=== PATIENT | female | born 1980 | race Caucasian/White ===

== ENCOUNTER 2019-07-15 13:01 | Emergency (ER) | payer OTHER, BC, SELFPAY ==
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
[2019-07-15 13:11] VITALS: BP 138/88; PULSE 80; RESP 16; TEMP 36.4; O2SAT 100
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
[2019-07-15 14:31] VITALS: BP 142/79; PULSE 82; RESP 16; TEMP 36.7; O2SAT 100
== END 2019-07-15 14:36 | disposition home or self-care (01) ==
LOC: ANHED 13:19
PROVIDERS: Emergency Provider Emergency Medicine; PCP Internal Medicine
DX: S06.0X0A Concussion without loss of consciousness, initial encounter (principal); S13.4XXA Sprain of ligaments of cervical spine, initial encounter; F41.9 Anxiety disorder, unspecified; F32.9 Major depressive disorder, single episode, unspecified; V43.52XA Car driver injured in collision with other type car in traffic accident, initial encounter
CPT/HCPCS: 70450; 72050; 73010; 99284

== ENCOUNTER 2020-04-13 17:42 | Outpatient (CLI) | payer OTHER, BC, SELFPAY ==
[2020-04-13 18:02] LABS: Basophils Absolute Auto 0.1 K/mm3 (0.0-0.1); Basophils Percent Auto 0.6 % (0.2-1.2); Eosinophils Absolute Auto 0.1 K/mm3 (0-0.3); Eosinophils Percent Auto 1.5 % (0-4.4); Hematocrit 40.3 % (37.0-47.0); Hemoglobin 12.9 g/dL (12.0-15.0); Immature Granulocyte Absolute 0.02 K/mm3 (0.00-0.031); Immature Granulocyte Percent A 0.3 % (0-0.5); Lymphocytes Percent Auto 27.8 % (18.3-44.2); Mean Corpuscular Hemoglobin 30.2 pg (26-34); Mean Corpuscular Volume 94.4 fl (80-100); Mean Platelet Volume 10.3 fl (7.4-10.4); Monocytes Absolute Auto 0.5 K/mm3 (0.1-0.6); Monocytes Percent Auto 6.2 % (2.6-8.5); Neutrophils Percent Auto 63.6 % (45.5-73.1); Platelet Count Result 183 k/mm3 (150-375); Red Blood Count 4.27 M/mm3 (4.2-5.4); Red Cell Distribution Width 13.2 % (11.5-14.5); White Blood Count 7.9 K/mm3 (4.5-10.0)
[2020-04-13 18:14] LABS: Alanine Aminotransferase 27 U/L (4-35); Albumin Level 4.3 g/dL (3.5-5.1); Alkaline Phosphatase 62 U/L (38-126); Anion Gap 5 mmol/L (8-16); Aspartate Amino Transferase 24 U/L (14-36); Bilirubin,Total 0.2 mg/dL (0.2-1.3); Blood Urea Nitrogen 9 mg/dL (7-17); Calcium 9.2 mg/dL (8.4-10.2); Carbon Dioxide 30 mmol/L (22-30); Chloride 105 mmol/L (98-107); Cholesterol 199 mg/dL (0-200); Estimated Glomerular Filt Rate > 60; Glucose 75 mg/dL (65-105); HDL Direct 46 mg/dL; Potassium 4.8 mmol/L (3.4-5.0); Sodium 140 mmol/L (137-145); Triglycerides 281 mg/dL (<150)
[2020-04-13 18:25] LABS: LDL Cholesterol Direct 121 mg/dL
== END 2020-04-13 17:43 | disposition home or self-care (01) ==
LOC: ANHLAB 17:44
PROVIDERS: PCP Internal Medicine; Visit Provider Nurse Practitioner
DX: G93.2 Benign intracranial hypertension (principal); Z13.220 Encounter for screening for lipoid disorders
CPT/HCPCS: 36415; 80053; 80061; 85025

== ENCOUNTER 2022-02-01 14:59 | Outpatient (CLI) | payer BC, SELFPAY ==
--- NOTE | ~2022-02-01 | MM_ITS ---
EXAMINATION: MM screening sally BI w dianelys HISTORY: Screening mammogram TECHNIQUE: Craniocaudal and mediolateral oblique 3-D tomosynthesis images were obtained and synthetic 2-D images were generated. CAD analysis was submitted and interpreted. COMPARISON: None, baseline BREAST PARENCHYMAL COMPOSITION: There are scattered areas of fibroglandular density. FINDINGS: There is no suspicious mass, calcification, or architectural distortion to suggest malignan cy in either breast. IMPRESSION: 1. No mammographic evidence of malignancy. 2. Recommend routine screening mammography in one year. BI-RADS Category 1: Negative Reviewed, dictated and finalized at location A.
== END 2022-02-01 15:00 | disposition home or self-care (01) ==
PROVIDERS: PCP Internal Medicine; Visit Provider Nurse Practitioner
DX: Z12.31 Encounter for screening mammogram for malignant neoplasm of breast (principal)
CPT/HCPCS: 77063; 77067

== ENCOUNTER 2022-03-23 15:32 | Observation (INO) | payer BC, SELFPAY ==
--- NOTE | ~2022-03-23 | CT_ITS ---
EXAMINATION: CT abdomen pelvis w con DATE: 03/23/2022 19:51 INDICATION: LLQ ABD pain TECHNIQUE: Computed tomography (CT) of the abdomen and pelvis was performed with 100 mL Omnipaque-350 intravenous contrast. Automated exposure control and iterative reconstruction technique were employe d. The dose-length product was 1360.96 mGy-cm. COMPARISON: None. FINDINGS: Lower thorax: Unremarkable Liver: Normal. Biliary/Gallbladder: Gallbladder is normal. No bile duct dilation. Pancreas: No mass or duct dilation. Spleen: Normal. Adrenals:No mass. Kidneys: No mass, stone, or hydronephrosis. GI tract: No small or large bowel dilation. Dilated, hyperemic appendix, intact wall, with mild surro unding inflammatory change. Mesentery/Peritoneum: No ascites, mass, or free air. Retroperitoneum: No mass. Pelvis: Pelvic organs are within normal limits. Soft Tissues: Soft tissues and body wall unremarkable. Bones: No acute osseous finding. IMPRESSION: Acute uncomplicated appendicitis. Reviewed, dictated and finalized at location K.
[2022-03-23 15:41] VITALS: BP 145/89; PULSE 73; RESP 16; TEMP 36.6; O2SAT 100
[2022-03-23 15:54] LABS: Basophils Absolute Auto 0.1 K/mm3 (0.0-0.1); Basophils Percent Auto 0.4 % (0.2-1.2); Eosinophils Percent Auto 0.2 % (0-4.4); Hematocrit 44.7 % (37.0-47.0); Hemoglobin 14.4 g/dL (12.0-15.0); Immature Granulocyte Absolute 0.05 K/mm3 (0.00-0.031); Immature Granulocyte Percent A 0.4 % (0-0.5); Lymphocytes Absolute Auto 1.39 K/mm3 (0.9-3.2); Lymphocytes Percent Auto 11.3 % (18.3-44.2); Mean Corpuscular HGB Conc 32.2 g/dl (32-36); Mean Corpuscular Hemoglobin 30.4 pg (26-34); Mean Corpuscular Volume 94.5 fl (80-100); Mean Platelet Volume 10.4 fl (7.4-10.4); Monocytes Absolute Auto 0.5 K/mm3 (0.1-0.6); Neutrophils Absolute Auto 10.3 K/mm3 (1.3-6.7); Neutrophils Percent Auto 83.7 % (45.5-73.1); Platelet Count Result 224 k/mm3 (150-375); Red Blood Count 4.73 M/mm3 (4.2-5.4); Red Cell Distribution Width 13.3 % (11.5-14.5); White Blood Count 12.3 K/mm3 (4.5-10.0)
[2022-03-23 16:10] LABS: Alanine Aminotransferase 36 U/L (6-35); Albumin Level 4.7 g/dL (3.5-5.1); Alkaline Phosphatase 96 U/L (38-126); Anion Gap 13 mmol/L (8-16); Aspartate Amino Transferase 26 U/L (14-36); Bilirubin,Total 0.8 mg/dL (0.2-1.3); Blood Urea Nitrogen 8 mg/dL (7-17); Calcium 9.2 mg/dL (8.4-10.2); Carbon Dioxide 26 mmol/L (22-30); Chloride 99 mmol/L (98-107); Estimated CRCL calculation 100 ml/min; Estimated Glomerular Filt Rate > 60; Glucose 114 mg/dL (65-110); Lipase 34 U/L (23-300); Sodium 138 mmol/L (137-145)
[2022-03-23 16:19] LABS: Add Urine Microscopic? YES; Appearance Urine Clear (Clear); Bacteria Urine Trace /hpf; Bilirubin Urine Negative (Negative); Blood Urine 1+ (Negative); Color Urine Straw (Yellow); Glucose Urine UA Negative (Negative); Ketones Urine Negative (Negative); Leukocyte Esterase Ur Negative LEU/UL (Negative); Mucus Urine Rare /lpf; Nitrate Urine Negative (Negative); Protein Urine Negative (Negative); RBC Urine 0-2 /hpf (0-2); Squamous Epithelial Cell Urine Occasional /hpf (Few); Urobilinogen Urine Negative mg/dL (<2.0); WBC Urine 0-3 /hpf
[2022-03-23 16:25] LABS: Specific Grav Ur 1.002 (1.001-1.035)
[2022-03-23 18:28] VITALS: BP 151/91; PULSE 82; RESP 18; O2SAT 100
--- NOTE | 2022-03-23 19:03 | ED.ABDPAIN ---
HPI - Abdominal Pain General Chief Complaint: Abdominal Pain Stated Complaint: abd pain Time Seen by Provider: 03/23/22 18:56 Source: patient Mode of arrival: ambulatory Limitations: no limitations History of Present Illness HPI narrative: Patient presents complaints of left lower quadrant abdominal pain that started this morning. States pain is stabbing in nature and persistent. Denies nausea, vomiting, diarrhea or fever. States did have episode of nausea when pain increased but that has resolved since. Denies other problems or complaints at this time. Last menstrual period 1 week ago. Related Data Home Medications Medication Instructions Recorded Confirmed bupropion HCl 150 mg 24 hr tablet, 150 mg PO QAM 11/24/21 03/23/22 extended release venlafaxine 150 mg tablet,extended 150 mg PO DAILY 11/24/21 03/23/22 release 24 hr Allergies Allergy/AdvReac Type Severity Reaction Status Date / Time pineapple Allergy Mild Hives/RED Unverified 03/24/22 16:51 FACE Review of Systems Review of Systems: CONSTITUTIONAL: Denies fever, chills, or sweats. EYES: Denies visual changes, redness, or discharge. ENT: Denies rhinorrhea, congestion, sore throat, or otalgia. CARDIOVASCULAR: Denies chest pain, palpitations, or edema. RESPIRATORY: Denies cough or dyspnea. GASTROINTESTINAL: Left lower quadrant abdominal pain. denies nausea, vomiting, or diarrhea. GENITOURINARY: Denies dysuria or hematuria. SKIN: Denies rash or itching. MUSCULOSKELETAL: Denies back pain, joint pain, or myalgia. NEUROLOGIC: Denies headache, numbness, or weakness. PSYCHIATRIC: Denies anxiety or depression. [facility] Past Medical History Medical History Anxiety Benign intracranial hypertension Depression Ocular migraine Family History Family History Daughter Type 1 diabetes Father Hypertension Diabetes mellitus Social History Social History Smoking status: Never smoker Alcohol intake: current Drinks per week: 5 Alcohol use details: once a week Substance use: never Substance use type: does not use Other substance usage details: Pt states using Marijuana occasionally. Last use: 3 weeks ago Has the Lack of Transportation Kept You From Medical Appointments or From Getting Medications?: No Within the Past 12 Months, Were You Worried Whether Your Food Would Run Out Before You Got Money to Buy More?: Never True What is Your Housing Situation Today?: I Have Housing Are You Worried That in the Next 2 Months, You May Not Have Your Own Housing to Live In?: No Do You Have Trouble Paying Your Heating Or Electricity Bill?: No Do You Have Trouble Paying For Medicines?: No Are You Currently Unemployed and Looking for Work?: No Highest Level of Education Completed: Bachelor's Degree Do You Have Trouble With Childcare or the Care of a Family Member?: No Gender identity (if verbalized by the patient): Female Spiritual care concerns: No Exam Narrative: GENERAL: Well-appearing, well-nourished, and in no acute distress. HEAD: Normocephalic, atraumatic. EYES: PERRLA and EOMI. ENT: Nares clear, no rhinorrhea or epistaxis. Mucous membranes moist. NECK: Supple. CHEST: Clear to auscultation. No respiratory distress. HEART: Regular rate and rhythm. No murmur heard. Normal peripheral pulses. ABDOMEN: Soft, tender palpation left lower quadrant and right lower quadrant. Hypoactive bowel sounds. No CVA tenderness. EXTREMITIES: Normal range of motion. No edema. SKIN: Warm, dry, no rash. NEURO: No focal deficits. Alert and oriented x3. PSYCH: Normal mood and affect. Course Vital Signs Vital signs: Vital Signs Temperature 36.6 C 03/23/22 15:41 Pulse Rate 73 03/23/22 15:41 Respiratory Rate 16 03/23/22 15:41 Blood Pressure 145/89 H 03/23/22 15:41 Pu
[2022-03-23] MEDS: ACETAMINOPHEN 325 MG TABLET 650 MG PO (21:10)
[2022-03-23] MEDS: SODIUM CHLORIDE 0.9% IV 1,000 ML 125 ML IV CONT (21:30)
[2022-03-23 21:32] VITALS: BP 145/86; PULSE 80; RESP 16; O2SAT 100
[2022-03-23 21:43] VITALS: BMI 34.7
[2022-03-23 21:44] LABS: SARS-CoV-2 RNA PCR Negative
--- NOTE | 2022-03-23 21:48 | ADMGEN ---
This patient, Kaia Adams, was admitted to Medical Room 240-01. Patient/family oriented to hospital policies and general routines including ID bracelet, bed and alarms, visiting hours, pain management, procedures, bathroom and other care routines, personal items, smoking policy, room service/diet, and visiting hours. Information on how to activate the Rapid Response Team has been discussed. Patient/Family are encouraged to report perceived risks to care and to ask questions if they do not understand what they are told or what they should do.
[2022-03-23 21:52] VITALS: BP 141/79; PULSE 70; RESP 20; TEMP 37.1; O2SAT 100
[2022-03-23 21:53] VITALS: BMI 34.8
[2022-03-24] VITALS (12 sets, daily range): BP systolic 104–132; BP diastolic 58–78; PULSE 78–95; RESP 12–22; TEMP 36.1–36.6; O2SAT 95–100
[2022-03-24] MEDS: ACETAMINOPHEN 325 MG TABLET 650 MG PO ×2 (01:53→08:48)
--- NOTE | 2022-03-24 08:11 | PM.IMHP ---
H&P: HPI History of Present Illness Date/Time: 03/24/22 08:11 Chief Complaint: abdominal pain Narrative: patient is a 42-year-old woman who about 3:00 a.m. yesterday morning awakened with periumbilical and somewhat left lower quadrant abdominal pain. She had some nausea but no vomiting. She came to the emergency room where she was noted to have an elevated white blood cell count. Her pain has moved to the right lower quadrant. She has been taking some Tylenol which takes the edge off the pain. She had a CT scan in the emergency room which showed acute appendicitis. She is seen now regarding her abdominal pain and appendicitis by CT scan. Review of Systems Review of Systems: All systems reviewed & are unremarkable except as noted in HPI and below ( HPI and those items noted below) Constitutional: Constitutional: Denies chills and Denies fever(s) Cardiovascular: Cardiovascular: Denies chest pain, Denies diaphoresis, Denies dyspnea and Denies paroxysmal nocturnal dyspnea Respiratory: Respiratory: Denies chest congestion, Denies cough and Denies dyspnea Integumentary/Breasts: Skin/Breast: Denies lesions and Denies rash PMFSH Past Medical History Medical History Anxiety Benign intracranial hypertension Depression Ocular migraine Family History Family History Daughter Type 1 diabetes Father Hypertension Diabetes mellitus Social History Social History Smoking status: Never smoker Alcohol intake: current Drinks per week: 5 Alcohol use details: once a week Substance use: never Substance use type: does not use Other substance usage details: Pt states using Marijuana occasionally. Last use: 3 weeks ago Gender identity (if verbalized by the patient): Female Spiritual care concerns: No Has the Lack of Transportation Kept You From Medical Appointments or From Getting Medications?: No Within the Past 12 Months, Were You Worried Whether Your Food Would Run Out Before You Got Money to Buy More?: Never True What is Your Housing Situation Today?: I Have Housing Are You Worried That in the Next 2 Months, You May Not Have Your Own Housing to Live In?: No Do You Have Trouble Paying Your Heating Or Electricity Bill?: No Do You Have Trouble Paying For Medicines?: No Are You Currently Unemployed and Looking for Work?: No Highest Level of Education Completed: Bachelor's Degree Do You Have Trouble With Childcare or the Care of a Family Member?: No Meds Home Medications and Allergies Home Medications Medication Instructions Recorded Confirmed Type bupropion HCl 150 mg 24 hr tablet, 150 mg PO QAM 11/24/21 03/23/22 History extended release venlafaxine 150 mg tablet,extended 150 mg PO DAILY 11/24/21 03/23/22 History release 24 hr Allergies Allergy/AdvReac Type Severity Reaction Status Date / Time food allergy-pineapple Allergy Mild Hives / Uncoded 03/23/22 18:30 Red Face Vital Signs Vital Signs - 24 hr 03/23/22 15:41 03/23/22 18:28 03/23/22 21:32 Temperature 36.6 C Pulse Rate 73 82 80 Respiratory Rate 16 18 16 Blood Pressure 145/89 H 151/91 H 145/86 H Pulse Oximetry 100 100 100 Oxygen Delivery Room Air Room Air 03/23/22 21:52 03/24/22 05:49 Temperature 37.1 C 36.5 C Pulse Rate 70 78 Respiratory Rate 20 20 Blood Pressure 141/79 H 104/58 L Pulse Oximetry 100 100 Oxygen Delivery Exam Const: General: comfortable, no acute distress, alert and awake HENMT: Head: normocephalic and atraumatic Mouth: Yes Normal oral and palatal mucosa present Eyes: Conjunctivae: conjunctivae normal Pupils: Equal, round and reactive pupils present EOM: EOMs intact bilaterally Neck: Neck: normal visual inspection, no lymphadenopathy and nontender Resp: Effort & Inspection: normal respiratory
--- NOTE | 2022-03-24 08:16 | WPDHPUPDATE1 ---
History and Physical Update Update Date/Time: 03/24/22 08:16 History and Physical has been reviewed, including an updated exam of the patient. There are NO changes in the patient's condition. Risks, benefits, and alternatives have been discussed and questions answered. Patient agrees to proceed with procedure.
[2022-03-24] MEDS: buPROPion HCL XL (24 HR) 150 MG TABCR PO (08:46)
[2022-03-24] MEDS: VENLAFAXINE HCL XR 75 MG CAP.ER.24H 150 MG PO (08:46)
--- NOTE | 2022-03-24 13:34 | PC.NURSE ---
On 03/24/22, the student, [Ivis Brambila], provided care and completed [facility] documentation on this patient. I have reviewed the student's documentation and agree with the findings.
[2022-03-24] MEDS: LACTATED RINGERS 1,000 ML 30 ML IV CONT (14:00)
--- NOTE | 2022-03-24 14:14 | WPDANESEPPF ---
Anes - Initial Pre Proc Eval Procedure: Operation Date: 03/24/22 15:00 Proposed Procedures p Laparoscopic Appendectomy - Ravi Cox MD Date/Time: 03/24/22 14:14 Surgeon: Ravi Cox MD Pre Op Diagnosis: Acute Appendicitis Patient Data Age: 42 Gender: F Height: 1.8 m Weight: 113.3 kg Last Vital Signs Temp 36.6 C 03/24/22 14:07 Pulse 80 03/24/22 14:07 Resp 18 03/24/22 14:07 BP 115/68 03/24/22 14:07 Pulse Ox 99 03/24/22 14:07 O2 Del Method Room Air 03/24/22 14:07 Allergies Allergy/AdvReac Type Severity Reaction Status Date / Time food allergy-pineapple Allergy Mild Hives / Uncoded 03/23/22 18:30 Red Face Home Medications Medication Instructions Recorded Confirmed Type bupropion HCl 150 mg 24 hr tablet, 150 mg PO QAM 11/24/21 03/23/22 History extended release venlafaxine 150 mg tablet,extended 150 mg PO DAILY 11/24/21 03/23/22 History release 24 hr Laboratory Tests 03/23/22 03/23/22 03/23/22 15:47 15:47 15:47 WBC 12.3 K/mm3 H K/mm3 (4.5-10.0) RBC 4.73 M/mm3 M/mm3 (4.2-5.4) Hgb 14.4 g/dL g/dL (12.0-15.0) Hct 44.7 % % (37.0-47.0) MCV 94.5 fl fl (80-100) MCH 30.4 pg pg (26-34) MCHC 32.2 g/dl g/dl (32-36) RDW 13.3 % % (11.5-14.5) Plt Count 224 k/mm3 k/mm3 (150-375) MPV 10.4 fl fl (7.4-10.4) Immature Gran % (Auto) 0.4 % % (0-0.5) Neut % (Auto) 83.7 % H % (45.5-73.1) Lymph % (Auto) 11.3 % L % (18.3-44.2) Saunders % (Auto) 4.0 % % (2.6-8.5) Eos % (Auto) 0.2 % % (0-4.4) Baso % (Auto) 0.4 % % (0.2-1.2) Lymph # (Auto) 1.39 K/mm3 K/mm3 (0.9-3.2) Saunders # (Auto) 0.5 K/mm3 K/mm3 (0.1-0.6) Eos # (Auto) 0.0 K/mm3 K/mm3 (0-0.3) Baso # (Auto) 0.1 K/mm3 K/mm3 (0.0-0.1) Abs Immat Gran (auto) 0.05 K/mm3 H K/mm3 (0.00-0.031) Absolute Neuts (auto) 10.3 K/mm3 H K/mm3 (1.3-6.7) Absolute Nucleated RBC 0.0 K/mm3 K/mm3 (0.0-0.012) Nucleated RBC % 0.0 % % (0.0-0.2) Sodium 138 mmol/L mmol/L (137-145) Potassium 4.0 mmol/L mmol/L (3.4-5.0) Chloride 99 mmol/L mmol/L (98-107) Carbon Dioxide 26 mmol/L mmol/L (22-30) Anion Gap 13 mmol/L mmol/L (8-16) BUN 8 mg/dL mg/dL (7-17) Creatinine 0.90 mg/dL mg/dL (0.7-1.0) Estim Creat Clear Calc 100 ml/min ml/min Estimated GFR > 60 (59 - ) Glucose 114 mg/dL H mg/dL (65-110) Calcium 9.2 mg/dL mg/dL (8.4-10.2) Total Bilirubin 0.8 mg/dL mg/dL (0.2-1.3) AST 26 U/L U/L (14-36) ALT 36 U/L H U/L (6-35) Alkaline Phosphatase 96 U/L U/L (38-126) Total Protein 8.0 g/dL g/dL (6.3-8.2) Albumin 4.7 g/dL g/dL (3.5-5.1) Lipase 34 U/L U/L (23-300) Urine Color Straw (Yellow) Urine Appearance Clear (Clear) Urine pH 7.0 (5.0-9.0) Ur Specific [place] 1.002 (1.001-1.035) Urine Protein Negative mg/dL mg/dL (Negative) Urine Glucose (UA) Negative mg/dL mg/dL (Negative) Urine Ketones Negative mg/dL mg/dL (Negative) Ur Blood (Man) 1+ H (Negative) Urine Nitrate Negative (Negative) Urine Bilirubin Negative (Negative) Urine Urobilinogen Negative mg/dL mg/dL (<2.0) Leukocyte Esterase Rfl Negative AD/UL AD/UL (Negative) Urine RBC 0-2 /hpf /hpf (0-2) Urine WBC 0-3 /hpf /hpf Ur Squamous Epith Cells Occasional /hpf /hpf (Few) Urine Bacteria Trace /hpf /hpf Urine Mucus Rare /lpf /lpf SARS-CoV-2 RNA (RT-PCR) Blood Type Antibody Screen 03/23/22 10
--- NOTE | 2022-03-24 15:09 | SUR.PREOP ---
DR HENRY AND DR WEBSTER AWARE THAT PATIENT IS UNABLE TO REMOVE [place] RINGS
[2022-03-24] MEDS: BUPIVACAINE/EPINEPHRINE 0.25% 50 ML VIAL 30 ML INFILTRATE (16:46)
--- NOTE | 2022-03-24 17:28 | P.OP_ITS ---
Procedure Note - Detailed Date of Procedure 03/24/22 Pre-op Diagnosis Acute Appendicitis Post-op Diagnosis Same Procedure Performed Laparoscopic appendectomy Surgeon Ravi Cox MD Gas Systems Worker Svaana STEWART Anesthesia General and Local ( 1/4% Marcaine with epinephrine) Indications patient is a 42-year-old woman who developed mid abdominal pain that moved to the right lower quadrant. Pain was severe and she came to the emergency room. She had an elevated white count and lower abdominal tenderness worse in the right lower quadrant. CT scan showed acute appendicitis. Findings Acute non perforated appendicitis Description of Procedure patient was taken to surgery and induced into general anesthesia. The abdomen is prepped and draped. Trocars were placed in the usual fashion using applied Medical optical trocars and local anesthetic. A 5 mm a Fred is used. Patient was placed in Trendelenburg with the right-side elevated. We reviewed the cecum and found the appendix by following the tenia to the into the cecum. The appendix was twisted under the cecum and under the distal ileum. We gently broke up some inflammatory adhesions and then freed the appendix. Appendix was quite swollen and his mesentery was swollen as well. After dissecting out the appendix completely, dissection was then carried out in the appendiceal mesentery at the level of the base of the appendix. Appendiceal artery was thoroughly cauterized and divided. We continued cauterizing vessels and freeing up the mesentery until we had skeletonized the base of the appendix. A Vicryl e ndoloop was then used to ligate the appendix at its base. The appendix was amputated just above the ligature. The mucosa of the appendiceal stump was cauterized. The appendix was placed immediately in an Endo-Catch bag and retrieved through the 10 11 left lower quadrant trocar site. The left lower quadrant trocar was then replaced. We suctioned and irrigated the area of dissection in the right lower quadrant. There was no evidence of bleeding or other problems. The appendiceal stump looked good. We then evacuated CO2 and removed the trocar sleeves. Skin wounds were closed with subcuticular 4-0 Monocryl skin suture. The wounds were dressed with Exofin surgical adhesive. Patient was awakened and taken to recovery in good condition. Sponge needle counts were correct x2. Estimated Blood Loss -5.0 Urine Output 0 Pathology Yes ( Appendix) Complications No immediate complications Condition Stable Disposition PACU [facility] Billing Surgery - Charge Forward: Surgery Billing ( laparoscopic appendectomy)
--- NOTE | 2022-03-24 17:33 | PM.DS ---
DS: Admitting Diagnosis Discharge Date 03/24/2022 Admitting Diagnosis acute appendicitis depression anxiety DS: Discharge Diagnosis Discharge Diagnosis (1) Acute appendicitis with localized peritonitis: Code(s): K35.30 - Acute appendicitis with localized peritonitis, without perforation or gangrene Status: Acute Assessment and Plan: laparoscopic appendectomy [id number] DS: Summary Hospital Course Hospital Course: patient was admitted in the evening of 03/23/2022 with abdominal pain that moved to the right lower quadrant. The pain was severe and she had lower abdominal tenderness especially in the right lower quadrant. Her white blood cell count was elevated. CT scan showed evidence of acute appendicitis. She was started on Zosyn and placed in the hospital. She was taken to surgery on 03/24/2022. Laparoscopic appendectomy was performed. There is no evidence of a ruptured appendix or other abnormalities. Patient did well was able to be discharged after period of observation. Status at Discharge Functional status at discharge: independent ambulation Overall status at discharge: patient is progressing back to baseline Time Spent with Patient Time attestation: Total time spent providing and/or coordinating discharge services: Time spent: Less than 30 minutes DS: Data Data Completed and Pending Pending studies at discharge: Pending at discharge 03/24/22 16:57 Surgical [PTH] Routine Labs on day of discharge: Labs from last 24 hours 03/24/22 03/23/22 08:20 20:59 SARS-CoV-2 RNA (RT-PCR) Negative Blood Type A Negative Antibody Screen Negative Discharge Plan Discharge Attending physician on discharge: Ravi Cox Discharging Clinician: Ravi Cox Anticipated Discharge Date/Time: 03/24/22 20:00 Patient Disposition: Home, Self-Care Activity: may shower, no straining and as tolerated Diet: as tolerated and regular Wound Care Instructions: incision open to air Discharge Instructions: 1. May shower the day after surgery over incisions. 2. Call office for: -Wound increasingly painful or bleeding -Vomiting -Fever of greater than 101 degrees 3. Expect some blood on dressing and old blood on skin. 4. If no bowel movement for three days, take 1 oz. (30 ml) Milk of Magnesia, if no results, take Fleets enema. 5. No heavy lifting > 15-20 pounds for 2 weeks. 6. No driving for 3 days or while taking narcotic pain medications. 7. Up walking 10-30 minutes three times per day. 8. Resume previous home medications. 9. Follow-up 7-10 days in office for wound check or as previously scheduled. 10. Oral pain medications prescription to be sent home with patient. 11. NUTRITION: Start out by drinking fluids and increase your diet as tolerated. If you experience nausea, try dry toast, crackers, and 7-UP. If nausea or vomiting persists, contact your surgeon?s office. Patient Instructions: Antibiotic Form Stand Alone Forms: General Discharge Information Follow-up/Referrals: Ravi Cox MD [Physician] - Call for Appointment ( See Dr. Cox in 7-10 days in the office) Discharge Medications: New hydrocodone-acetaminophen 5-325 mg tablet 1 - 2 tablet PO Q6H PRN (Reason: pain) Qty: 7 0RF ketorolac 10 mg tablet 10 mg PO Q6H 4 Days Qty: 16 0RF Continued venlafaxine 150 mg tablet extended release 24hr 150 mg PO DAILY bupropion HCl 150 mg tablet extended release 24 hr 150 mg PO QAM Date of admission: 03/23/22 20:27 Primary Care Provider: Isiah Alegria Admitting Provider: Ravi Cox Attending physician on admission: Ravi Cox Condition: Improved
[2022-03-24] MEDS: fentaNYL CITRATE INJ (*CRX) 100 MCG/2 ML VIAL 25 MCG IV PUSH ×6 (17:43→18:16)
[2022-03-24] MEDS: LACTATED RINGERS 1,000 ML 100 ML IV CONT (18:57)
[2022-03-24] MEDS: HYDROcodone/acetaminophen (*CRX) 10-325 MG TABLET 1 TAB PO (20:51)
[2022-03-25 03:29] VITALS: BP 102/61; PULSE 76; RESP 18; TEMP 36.3; O2SAT 97
[2022-03-25 05:30] LABS: Hematocrit 41.1 % (37.0-47.0); Hemoglobin 12.9 g/dL (12.0-15.0); Mean Corpuscular HGB Conc 31.4 g/dl (32-36); Mean Corpuscular Hemoglobin 30.1 pg (26-34); Mean Platelet Volume 10.5 fl (7.4-10.4); Platelet Count Result 201 k/mm3 (150-375); Red Blood Count 4.28 M/mm3 (4.2-5.4); Red Cell Distribution Width 13.3 % (11.5-14.5)
[2022-03-25 05:36] LABS: Anion Gap 9 mmol/L (8-16); Blood Urea Nitrogen 5 mg/dL (7-17); Calcium 8.5 mg/dL (8.4-10.2); Carbon Dioxide 26 mmol/L (22-30); Chloride 102 mmol/L (98-107); Estimated CRCL calculation 100 ml/min; Estimated Glomerular Filt Rate > 60; Glucose 108 mg/dL (65-110); Potassium 4.2 mmol/L (3.4-5.0); Sodium 137 mmol/L (137-145)
[2022-03-25] MEDS: HYDROcodone/acetaminophen (*CRX) 5-325 MG TABLET 1 TAB PO ×2 (05:52→11:24)
--- NOTE | 2022-03-25 07:07 | PM.PNGS ---
Progress Note: A&P Assessment and Plan (1) Bacteremia due to Gram-positive bacteria: Code(s): R78.81 - Bacteremia Status: Acute Assessment and Plan: blood cultures drawn in the emergency room were called and have a preliminary report of Gram-positive cocci positivity. Will give patient a dose of vancomycin this morning. Will discharge on Bactrim. (2) Acute appendicitis with localized peritonitis: Code(s): K35.30 - Acute appendicitis with localized peritonitis, without perforation or gangrene Status: Acute Assessment and Plan: Recovering well after laparoscopic cholecystectomy late in the day 03/24/2022. Subjective Subjective Date/Time Seen: 03/25/22 07:07 Patient reports: feels better, pain is less and afebrile Exam Const: General: comfortable GI: Inspection: incision ( Clean and dry) GI Palp: Yes Soft to palpation and Yes Tenderness to palpation present (GI) Objective Data Vital Signs Vital Signs: Vital Signs - 24 hr 03/24/22 14:07 03/24/22 17:15 03/24/22 17:30 Temperature 36.6 C 36.4 C Pulse Rate 80 87 87 Respiratory Rate 18 18 16 Blood Pressure 115/68 130/74 132/76 Pulse Oximetry 99 95 100 Oxygen Delivery Room Air Simple Face Mask Simple Face Mask Oxygen Flow Rate 10 10 03/24/22 17:45 03/24/22 18:00 03/24/22 18:15 Temperature Pulse Rate 85 91 90 Respiratory Rate 22 H 16 12 Blood Pressure 125/73 108/77 117/78 Pulse Oximetry 95 100 100 Oxygen Delivery Room Air Room Air Room Air Oxygen Flow Rate 03/24/22 18:28 03/24/22 18:56 03/24/22 19:56 Temperature 36.4 C L 36.1 C L Pulse Rate 95 95 81 Respiratory Rate 18 18 18 Blood Pressure 114/68 107/61 118/70 Pulse Oximetry 98 98 97 Oxygen Delivery Room Air Oxygen Flow Rate 03/24/22 20:00 03/24/22 23:06 03/25/22 03:29 Temperature 36.4 C 36.3 C L Pulse Rate 81 80 76 Respiratory Rate 18 18 18 Blood Pressure 109/63 102/61 Pulse Oximetry 97 95 97 Oxygen Delivery Room Air Oxygen Flow Rate Intake/Output Intake/Output: Intake & Output 03/22/22 03/23/22 03/24/22 03/25/22 23:59 23:59 23:59 23:59 Intake Total 50 250 1290 Output Total 0 800 Balance 50 250 490 Meds/Results Medications: Active Medications Generic Name Dose Route Start Last Admin Trade Name Freq PRN Reason Stop Dose Admin Acetaminophen 500 mg 03/24/22 18:30 Acetaminophen 500 Mg Tablet PO Q6H PRN Mild Pain (1-3) or Fever Hydrocodone Bitart/Acetaminophen 1 tab 03/24/22 18:30 03/25/22 05:52 Hydrocodone/Acetaminophen (*Crx) 5-325 Mg Tablet PO 1 tab Q4H PRN Administration Pain Rated 4-6 Hydrocodone Bitart/Acetaminophen 1 tab 03/24/22 18:30 03/24/22 20:51 Hydrocodone/Acetaminophen (*Crx) 10-325 Mg Tablet PO 1 tab Q6H PRN Administration Pain Rated 7-10 Bupropion HCl 150 mg 03/24/22 09:00 03/24/22 08:46 Bupropion Hcl Xl (24 Hr) 150 Mg Tabcr PO 150 mg QAM ALBARO Administration Enoxaparin Sodium 40 mg 03/25/22 09:00 Enoxaparin 40 Mg/0.4 Ml Syringe SUB-Q DAILY ALBARO Morphine Sulfate 2 mg 03/24/22 18:30 Morphine Sulfate (*Crx) 2 Mg/Ml Inj IV PUSH Q2H PRN Pain Rated 4-6 Morphine Sulfate 4 mg 03/24/22 18:30 Morphine Sulfate (*Crx) 4 Mg/Ml Inj IV PUSH Q2H PRN Pain Rated 7-10 Naloxone HCl 0.1 mg 03/24/22 18:30 Naloxone Hcl 0.4 Mg/Ml Vial IV PUSH Q2M PRN Opiate Reversal Ondansetron HCl 4 mg 03/24/22 18:30 Ondansetron Inj 4 Mg/2 Ml Vial IV PUSH Q4H PRN Nausea And Vomiting Venlafaxine HCl 150 mg 03/24/22 09:00 03/24/22 08:46 Venlafaxine Hcl Xr 75 Mg Cap.Er.24h PO 150 mg DAILY ALBARO Administration Radiology Results: ITS Impressions Abdomen/Pelvis CT 03/23/22 19:56 IMPRESSION: Acute uncomplicated appendicitis. Labs Labs: Laboratory Results - last 24 hr 03/24/22 03/25/22 03/25/22 08:20 04:57 04:57 WBC 10.0 RBC 4.28 Hgb 12.9 Hct 41
[2022-03-25] MEDS: VENLAFAXINE HCL XR 75 MG CAP.ER.24H 150 MG PO (08:03)
[2022-03-25] MEDS: buPROPion HCL XL (24 HR) 150 MG TABCR PO (08:04)
[2022-03-25] MEDS: ENOXAPARIN 40 MG/0.4 ML SYRINGE SUB-Q (08:04)
--- NOTE | 2022-03-25 08:16 | WPDANESPN ---
Anes - Prog Note Post-Op Date/Time: 03/25/22 08:16 Cardiovascular status: normal Respiratory status: normal Airway patency: baseline Mental status: baseline Post-Op hydration status: normal Vital Signs: Last Vital Signs Temp 36.3 C L 03/25/22 03:29 Pulse 76 03/25/22 03:29 Resp 18 03/25/22 03:29 BP 102/61 03/25/22 03:29 Pulse Ox 97 03/25/22 03:29 O2 Del Method Room Air 03/24/22 20:00 O2 Flow Rate 03/24/22 17:30 Pain Score (VAS): 08/12 I/O: Intake & Output 03/24/22 03/25/22 03/25/22 23:59 07:59 15:59 Intake Total 150 1290 Output Total 0 800 Balance 150 490 Laboratory Tests 03/25/22 04:57 03/25/22 04:57 03/24/22 03/25/22 03/25/22 08:20 04:57 04:57 WBC 10.0 RBC 4.28 Hgb 12.9 Hct 41.1 MCV 96.0 MCH 30.1 MCHC 31.4 L RDW 13.3 Plt Count 201 MPV 10.5 H Sodium 137 Potassium 4.2 Chloride 102 Carbon Dioxide 26 Anion Gap 9 BUN 5 L Creatinine 0.90 Estim Creat Clear Calc 100 Estimated GFR > 60 Glucose 108 Calcium 8.5 Blood Type A Negative Antibody Screen Negative Microbiology 03/23/22 20:53 Blood Blood Culture - Preliminary 03/23/22 20:53 Blood Blood Culture - Preliminary Post-procedural complaints: none Patient Feedback: Patient satisfied with anesthetic care.
== END 2022-03-25 11:34 | disposition home or self-care (01) ==
LOC: ANHED 19:16 → ANH2MED 21:11
PROVIDERS: Emergency Medicine; Nurse Practitioner; Admitting Provider Surgery; PCP Internal Medicine; Visit Provider Surgery
PROC: 0DTJ4ZZ Resection of Appendix, Percutaneous Endoscopic Approach (ICD-10-PCS; CPT 44970; principal; 2022-03-24 15:00)
DX: K35.80 Unspecified acute appendicitis (principal); R78.81 Bacteremia; B95.7 Other staphylococcus as the cause of diseases classified elsewhere; F41.9 Anxiety disorder, unspecified; F32.A Depression, unspecified; Z20.822 Contact with and (suspected) exposure to COVID-19; Z79.899 Other long term (current) drug therapy; Z82.49 Family history of ischemic heart disease and other diseases of the circulatory system
CPT/HCPCS: 44970; 36415; 74177; 80048; 80053; 81001; 81025; 83690; 85025; 85027; 86850; 86900; 86901; 87040; 87147; 87181; 87186; 88304; 96365; 96366; 99285; A9270; C9803; G0378; J1100; J1650; J2250; J2405; J2543; J2704; J2710; J3010; J3370; J7030; J7120; Q9967; U0003; U0005

== ENCOUNTER 2023-03-02 09:13 | Outpatient (CLI) | payer BC, SELFPAY ==
--- NOTE | 2023-03-20 10:38 | WPDHOMESLEEP ---
Sleep Study - Home Unattended Date of Study: 03/02/23 Ordering Provider: REBECCA Mckinney-C Interpreting Provider: Brinda Antony MD Home Sleep Study Type: Watch PAT Height: 1.8 m Weight: 115.666 kg Body Mass Index: 35.5 Neck Circumference (inches): 14.5 [place]: 15 Reason for Sleep Study Hypersomnolence Sleep History Kaia Adams is a 43-year-old woman with hypersomnolence, having a homes sleep study for feeling tired all the time. She started seeing a mental health care provider in 2021, has had medications started including Effexor and Wellbutrin. After starting these medications, she had increased feelings of tiredness. She had thyroid testing which was normal, and now is having sleep testing to determine the cause for her fatigue. There is a family history of sleep issues, her father has sleep apnea. She rarely awakens from sleep short of breath. She occasional wakes at night with heartburn, belching or coughing.??She occasionally snores, occasionally snores loudly enough that others complain. She frequently has trouble sleeping when she has a cold. She occasionally wakes up gasping for breath during the night. She occasionally has breathing problems at night. She occasional sweats excessively at night. She frequently notices her heart pounding or beating irregularly during the night. She constantly falls asleep during the day. She frequently falls asleep involuntarily, never falls asleep while driving. she rarely has daytime difficulties at work due to excessive sleepiness. 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 She never experiences loss of muscle tone with strong emotion. She never feels paralyzed on waking or falling asleep. She occasionally experiences vivid dreams upon waking or falling asleep. She never feels afraid of going to sleep. She never has nightmares. She frequently recalls her dreams. She frequently has thoughts racing through her mind. She frequently feels sad or depressed. She frequently feels anxiety. She frequently notices parts of her body jerk. She occasionally kicks during the night. She occasionally feels crawling or aching feelings in her legs. She occasionally feels leg pain at night. She frequently has morning jaw pain, and frequently grinds her teeth at night. She occasionally feels bothered by pain during the day, rarely is awakened by pain during the night. She frequently wakes up feeling stiff in the morning, frequently wakes feeling sore or achy in the morning. She occasionally awakens with pain in her neck, spine, or joints. she has memory problems and concentration difficulties. She has headaches, fatigue, and palpitations. Normal bedtime is 10:30 p.m., falling asleep within 5-10 minute. on a normal night, she wakes between 4 and 5 times for few minutes, rolls over and returns to sleep. She reports getting 7-9 hours of sleep per night. Her wake time is 6:15 a.m. on weekends, bedtime is 1 hour later, 11:30 p.m., wake time is later, 10:30 a.m.. Her sleep may be disturbed by temperature, noise and her 14 year-old daughter's diabetic notifications. She takes naps in the afternoon or evening. A short nap lasting 10-15 minutes is not refreshing. She is usually drowsy for 3 hours or longer after waking. Habits:??Tobacco:quit years ago Caffeine: 2-3 per day. Alcohol:socailly, heavier on weekends Recreational substances: none PMFSH Past Medical History Medical History Anxiety Benign intracranial hypertension Depression Ocular migraine Surgical History Surgical History History of laparoscopic appendectomy 03/24/22 Family History Family History (Updated 03/20/23 @ 10:51 by Brinda Antony MD) Daughter Type 1 diabetes Father Hypertension Diabetes mellitus Obstructive sleep apnea Social History Social History (Reviewed 03/20/23 @ 10:51 by Shabbir
[2023-03-20 11:20] VITALS: BMI 35.5
== END 2023-03-03 12:17 | disposition home or self-care (01) ==
LOC: ANHCSM 09:15
PROVIDERS: PCP Internal Medicine; Visit Provider Clinical Nurse Specialist
DX: G47.10 Hypersomnia, unspecified (principal)
CPT/HCPCS: 95800

== ENCOUNTER 2023-03-03 11:03 | Outpatient (CLI) | payer BC, SELFPAY ==
[2023-03-03 11:45] LABS: Alanine Aminotransferase 37 U/L (6-35); Albumin Level 4.4 g/dL (3.5-5.1); Alkaline Phosphatase 69 U/L (38-126); Anion Gap 5 mmol/L (8-16); Aspartate Amino Transferase 26 U/L (14-36); Bilirubin,Total 0.6 mg/dL (0.2-1.3); Blood Urea Nitrogen 12 mg/dL (7-17); Calcium 9.2 mg/dL (8.4-10.2); Carbon Dioxide 30 mmol/L (22-30); Chloride 102 mmol/L (98-107); Estimated Glomerular Filt Rate > 60; Glucose 93 mg/dL (65-110); Potassium 4.6 mmol/L (3.4-5.0); Sodium 137 mmol/L (137-145)
== END 2023-03-03 11:04 | disposition home or self-care (01) ==
LOC: ANHLAB 11:04
PROVIDERS: PCP Internal Medicine; Visit Provider Clinical Nurse Specialist
DX: B35.1 Tinea unguium (principal)
CPT/HCPCS: 36415; 80053

== ENCOUNTER 2024-01-19 14:06 | Outpatient (CLI) | payer BC, SELFPAY ==
--- NOTE | ~2024-01-19 | MM_ITS ---
EXAMINATION: MM screening [facility] BI w dianelys HISTORY: Screening TECHNIQUE: Craniocaudal and mediolateral oblique 3-D tomosynthesis images were obtained and synthetic 2-D images were generated. CAD analysis was submitted and interpreted. COMPARISON: 02/01/2022 BREAST PARENCHYMAL COMPOSITION: Not dense: There are scattered areas of fibroglandular density. FINDINGS: There is no evidence of suspicious mass, calcification, or architectural distortion to sugg est malignancy in either breast. There has been no suspicious interval change. IMPRESSION: 1. No mammographic evidence of malignancy. 2. Recommend routine screening mammography in one year. BI-RADS Category 1: Negative Reviewed, dictated and finalized at location B.
== END 2024-01-19 14:07 | disposition home or self-care (01) ==
LOC: CHSIMG 14:07
PROVIDERS: PCP Internal Medicine; Visit Provider Obstetrics & Gynecology
DX: Z12.31 Encounter for screening mammogram for malignant neoplasm of breast (principal)
CPT/HCPCS: 77063; 77067

== ENCOUNTER 2025-04-18 11:37 | Outpatient (CLI) | payer OTHER, SELFPAY ==
--- NOTE | ~2025-04-18 | MM_ITS ---
EXAMINATION: MM screening [facility] BI w dianelys HISTORY: Screening TECHNIQUE: Craniocaudal and mediolateral oblique 3-D tomosynthesis images were obtained and synthetic 2-D images were generated. CAD analysis was submitted and interpreted. COMPARISON: Comparison to multiple prior studies sequentially, with oldest reviewed study dated 02/01/2022. BREAST PARENCHYMAL COMPOSITION: Not dense: There are scattered areas of fibroglandular density. FINDINGS: There is no evidence of suspicious mass, calcification, or architectural distortion to suggest malignancy in either breast. There has been no suspicious interval change. IMPRESSION: 1. No mammographic evidence of malignancy. 2. Recommend routine screening mammography in one year. BI-RADS Category 1: Negative Reviewed, dictated and finalized at location B. 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
== END 2025-04-18 11:38 | disposition home or self-care (01) ==
PROVIDERS: PCP Internal Medicine; Visit Provider Obstetrics & Gynecology
DX: Z12.31 Encounter for screening mammogram for malignant neoplasm of breast (principal)
CPT/HCPCS: 77063; 77067